=== PATIENT | male | born 1940 | race Caucasian/White ===

== ENCOUNTER 2023-04-26 17:09 | Emergency (ER) | payer MEDICARE, OTHER, SELFPAY ==
--- NOTE | ~2023-04-26 | CT_ITS ---
EXAMINATION: CT brain wo con INDICATION: Head injury COMPARISON: None TECHNIQUE: Standard unenhanced head CT. The dose-length product (DLP) was 681.00 mGy-cm. The mA was a djusted according to patient size. Iterative reconstruction technique was employed. FINDINGS: No acute intraparenchymal hemorrhage. No evidence of mass lesion. No evidence of acute infa rction. There is moderate periventricular and subcortical hypodensity probably related to small vesse l ischemic disease. There is moderate prominence of the sulci and ventricles related to cerebral atro phy. Intracranial calcified cerebral atherosclerosis is noted. No extra-axial collections. No mass ef fect or midline shift. Changes in the globes are likely from ocular lens surgery. The visualized sinu ses and mastoid air cells are well aerated. IMPRESSION: 1. No acute intracranial abnormality. 2. Age related findings. Reviewed, dictated and finalized at location F. OO TECHNICIAN
--- NOTE | ~2023-04-26 | CT_ITS ---
EXAMINATION: CT cervical spine wo con DATE: 04/26/2023 17:35 INDICATION: Head injury TECHNIQUE: Computed tomography (CT) of the cervical spine was performed without intravenous contrast. The dose-length product (DLP) was 513.62 mGy-cm. Automated exposure control and iterative reconstruc tion technique were employed. COMPARISON: None FINDINGS: Bone alignment is normal. There is no fracture. The odontoid process is intact. The vertebr al body heights are maintained. There is mild loss of intervertebral disc space height at C5-C6. Ther e is multilevel mild facet and uncovertebral joint osteoarthritis. The prevertebral soft tissues are normal. There is a 3.8 x 3.5 cm right parotid mass. IMPRESSION: 1. Mild cervical spondylosis without acute findings. 2. 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 Follow-up with nonemergent ultrasound is recommended. Reviewed, dictated and finalized at location F. MOBILE SERVICE STATION MECHANIC IMPRESSION: 1. Mild cervical spondylosis without acute findings. 2. 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 Follow-up with nonemergent ultrasound is recommen ded.
--- NOTE | ~2023-04-26 | XR_ITS ---
EXAMINATION: XR chest 1V INDICATION: Pain after fall TECHNIQUE: AP view of the chest is obtained. COMPARISON: None available FINDINGS: The lungs are free of acute opacities. No pleural effusion or pneumothorax. The cardiomedia stinal silhouette is normal. IMPRESSION: 1. No acute cardiopulmonary abnormality. Reviewed, dictated and finalized at location F. ECTION OFFICER
--- NOTE | ~2023-04-26 | XR_ITS ---
EXAMINATION: XR hip BI 2V w AP pelvis DATE: 04/26/2023 17:46 INDICATION: Pain after fall TECHNIQUE: AP view the pelvis and two views of each hip were obtained. COMPARISON: None. 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 Bone alignment is normal. There is no fracture. 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 Phleboliths are noted in the pelvis. There is a bone island of the right ilium. IMPRESSION: 1. No acute osseous abnormality. Reviewed, dictated and finalized at location F. BING ASSEMBLER INSTALLER
[2023-04-26 17:08] VITALS: BP 153/79; PULSE 66; RESP 20; TEMP 36.7; O2SAT 99
--- NOTE | 2023-04-26 17:24 | ED.FALL ---
HPI - Fall General Chief Complaint: Fall Stated Complaint: fall, struck head, ?LOC Time Seen by Provider: 04/26/23 17:17 Source: patient and EMS Mode of arrival: EMS Limitations: dementia History of Present Illness HPI Narrative: This is an 82-year-old male that presents to the emergency department after a fall with head injury. Patient presents from his nursing facility after a reported fall in the shower. Patient does not remember falling and cannot give any additional history. He has no complaints currently. Patient is on a blood thinner currently. Review of Systems Review of Systems: ROS unobtainable: Yes unobtainable due to medical condition PMFSH Past Medical History Medical History (Updated 04/26/23 @ 18:52 by Shanel Bryant PA-C) History of anemia History of dementia History of hypothyroidism History of Parkinson's disease History of restless legs syndrome Social History Social History (Updated 04/26/23 @ 17:25 by Shanel Bryant PA-C) Substance use: never Exam Narrative: GENERAL: Elderly, well-nourished, and in no acute distress. HEAD: Normocephalic, atraumatic. EYES: PERRLA and EOMI. ENT: Nares clear, no rhinorrhea or epistaxis. Mucous membranes moist. Oropharynx without tonsillar hypertrophy exudate or other lesions. Bilateral TMs pearly kimball non-bulging NECK: Supple. Mass about the right parotid gland, no erythema or warmth CHEST: Clear to auscultation. No respiratory distress. No wheezes rales or rhonchi HEART: Regular rate and rhythm. No murmur heard. Normal peripheral pulses. ABDOMEN: Soft, nontender, nondistended, normal active bowel sounds. BACK: No midline spinal tenderness EXTREMITIES: Normal range of motion. No obvious deformity. Strength equal in bilateral upper and lower extremities (5/5) SKIN: Warm, dry, no rash. NEURO: No focal deficits. Alert and oriented x2. Cranial nerves 2-12 grossly intact PSYCH: Normal mood and affect Course Course Emergency Course: Patient and daughter updated on workup. Daughter reports the mass in his parotid gland is known and he is following with a doctor for this Vital Signs Vital signs: Vital Signs Temperature 98.1 F 04/26/23 17:08 Pulse Rate 66 04/26/23 17:08 Respiratory Rate 20 04/26/23 17:08 Blood Pressure 153/79 H 04/26/23 17:08 Pulse Oximetry 99 04/26/23 17:08 Temperature 98.1 F 04/26/23 17:08 Pulse Rate 66 04/26/23 17:08 Respiratory Rate 20 04/26/23 17:08 Blood Pressure 153/79 H 04/26/23 17:08 Pulse Oximetry 99 04/26/23 17:08 MDM - Fall MDM Narrative Medical decision making narrative: Patient presents to the emergency department after a fall at his facility with head injury. Patient is neurologically intact at his baseline. No obvious signs of trauma on exam. Patient was sent for further evaluation due to being on a blood thinner with a head injury. His vitals are stable. CT brain and cervical spine without acute findings. Chest x-ray and hip/pelvic x-ray without acute findings. Patient and daughter updated on workup. Daughter reports the mass in his parotid gland is known and he is following with a doctor for this. Patient is to follow up with primary provider. Given warnings to return to the ER Differential Diagnosis Differential diagnosis: Likely compression fracture, concussion without loss of consciousness and other (subdural hematoma, cervical spine fracture) Imaging Data Radiologist's impression: ITS Impressions Head CT 04/26/23 17:38 IMPRESSION: 1. No acute intracranial abnormality. 2. Age related findings. Cervical Spine CT 04/26/23 17:44 IMPRESSION: 1. Mild cervical spondylosis without acute findings. 2. 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 Follow-up with nonemergent ultrasound is recommended. Hip/Pelvis X-Ray 04/26/23 17:57 IMPRESSION: 1. No acute osseous abnormality. Chest X-Ray 04/26/23 18:06 IMPRESSION: 1. No acute cardiopulmonary abnormality.
== END 2023-04-26 20:40 ==
PROVIDERS: Emergency Provider Physician Assistant
DX: S09.90XA Unspecified injury of head, initial encounter (principal); F03.90 Unspecified dementia, unspecified severity, without behavioral disturbance, psychotic disturbance, mood disturbance, and anxiety; G20.A1 Parkinson's disease without dyskinesia, without mention of fluctuations; G25.81 Restless legs syndrome; E03.9 Hypothyroidism, unspecified; K11.8 Other diseases of salivary glands; Z79.01 Long term (current) use of anticoagulants; M47.812 Spondylosis without myelopathy or radiculopathy, cervical region; W18.2XXA Fall in (into) shower or empty bathtub, initial encounter
CPT/HCPCS: 70450; 71045; 72125; 73521; 99284